=== PATIENT | male | born 1960 | race Caucasian/White ===

== ENCOUNTER 2017-03-17 08:25 | Day surgery (SDC) | payer BC ==
[2017-03-17] MEDS ORDERED: LIDOCAINE 2% MDV (20MG/ML) 20ML VIAL IV ONE (13:42)
[2017-03-17] MEDS ORDERED: MIDAZOLAM HCL 2MG/2ML VIAL IV ONE (13:42)
[2017-03-17] MEDS ORDERED: PROPOFOL 10 MG/ML VIAL IV ONE (13:42)
--- NOTE | 2017-03-19 13:42 | Operative Note ---
DATE OF SURGERY: 03/17/2017 OPERATION: COLONOSCOPY to the cecum with cold biopsy forceps polypectomy, cold snare polypectomy, and electrocautery snare polypectomy. INDICATION: Colorectal cancer screening. ANESTHESIA: Intravenous sedation was administered by the department of anesthesiology and included Diprivan titrated to effect. PROCEDURE: Following informed consent from this alert individual including a discussion of the risks and benefits of the procedure and an opportunity for the patient to ask questions, the patient was in the left lateral decubitus position. A digital rectal examination was performed. No abnormalities were detected. Following this, the Olympus [id number] video colonoscope was inserted into the rectum without resistance. The rectal mucosa had a normal appearance with normal folds and distensibility. The colonoscope was advanced up through the colon to the level of the cecum without much difficulty. The colon preparation was fair to good with the washing and suctioning. There were a few diverticula seen in the sigmoid colon. The cecum was well defined by noting the appendiceal orifice and ileocecal valve. Washing and suctioning was employed vigorously throughout the examination for fairly good clearance. Within the cecum, there were 4 diminutive 3-4 mm polyps noted each removed with application of biopsy forceps. There were 4 additional polyps noted in the ascending colon likewise removed with cold biopsy forceps also measuring 3-4 mm in size. There were 2 polyps noted in the descending colon. One was pedunculated and approximately 8 mm across the head. This polyp was removed with electrocautery snare with a white eschar noted. There was a small 5 mm polyp in the descending removed with cold snare polypectomy. There 2 additional 5 mm polyps in the sigmoid colon removed with cold snare polypectomy. Retroflexion was accomplished in the cecum and in the rectum. The rectal examination revealed small internal hemorrhoids. The endoscope was straightened and withdrawn. The patient tolerated the procedure well and was returned to the recovery area in stable condition. IMPRESSION: 1. A total of 12 polyps noted, most of them diminutive in size measuring between 3-4 mm removed from the cecum and ascending colon. The larger polyps were in the descending colon and sigmoid colon measuring 5 mm in size and one that was 8 mm in size in the descending colon which was also pedunculated. The latter was removed with electrocautery snare. The smaller ones were removed with cold snare polypectomy. 2. Mild diverticulosis. 3. Small internal hemorrhoids. RECOMMENDATIONS: The patient was advised he should receive a copy of his pathology report at home in the next 2-3 weeks. If not, he was asked to call my office to review the results of testing today. Further recommendations forthcoming pending those results. Followup will also be with [facility]. As always, thank you for allowing me to participate in the care of your patient. CC: JOHN PAUL Zambrano
== END 2017-03-17 10:40 | disposition home or self-care (01) ==
LOC: HOP 08:25
PROVIDERS: ATTEND Internal Medicine Gastroenterology
DX: Z12.11 Encounter for screening for malignant neoplasm of colon (principal); D12.4 Benign neoplasm of descending colon; D12.0 Benign neoplasm of cecum; D12.2 Benign neoplasm of ascending colon; K63.5 Polyp of colon; E11.9 Type 2 diabetes mellitus without complications; Z79.84 Long term (current) use of oral hypoglycemic drugs; J44.9 Chronic obstructive pulmonary disease, unspecified

== ENCOUNTER 2019-10-25 07:54 | Day surgery (SDC) | payer OTHER ==
[~2019-10-25 07:54] MED LIST: ACETAMINOPHEN 1,000 MG/100 ML BTL IVPB ONE
[2019-10-25] MEDS ORDERED: LIDOCAINE 2% MDV (20MG/ML) 20ML VIAL IV ONE (07:55)
[2019-10-25] MEDS ORDERED: FENTANYL PF 100MCG/2ML VIAL IV ONE (07:55)
[2019-10-25] MEDS ORDERED: PROPOFOL 10 MG/ML VIAL IV ONE (07:55)
[2019-10-25] MEDS ORDERED: MIDAZOLAM HCL 2MG/2ML VIAL IV ONE (07:55)
[2019-10-25] MEDS ORDERED: RINGERS SOLUTION,LACTATED 1,000 ML IV ONE (08:30)
[2019-10-25] MEDS ORDERED: CLINDAMYCIN 600MG/50ML PREMIX 600 MG/50 ML BAG IVPB ONE (09:40)
[2019-10-25] MEDS ORDERED: BUPIVACAINE 0.25% W/EPI MPF 30ML VIAL SQ ONE (09:45)
--- NOTE | 2019-10-26 06:01 | Operative Note ---
DATE OF SURGERY: 10/25/2019 SURGEON: Pacheco Tucker DO PREOPERATIVE DIAGNOSIS: Back mass. POSTOPERATIVE DIAGNOSIS: Back mass. OPERATION: Excision of back mass measuring 8 cm down to the fascia. PROCEDURE: The patient is a 59-year-old male who was brought to the operating room and placed in a supine position. He was rotated into left lateral position and his back was prepped and draped in the usual fashion. Propofol anesthesia was titrated to effect. At this time, the area around the mass was anesthetized with a total of 10 mL of 0.25% Sensorcaine with epinephrine. A 5 cm incision was made. This was carried down through the subcutaneous tissues to the capsule of a large lipoma. This was dissected free from the surrounding tissue with blunt dissection. This went down to the fascia overlying his back musculature. This was then fully excised measuring 8 x 4 cm. The wound was then irritated and closed with 3-0 and 4-0 Vicryl. Steri-Strips were applied. He was taken to the recovery room in stable condition. FINDINGS AT THE TIME OF SURGERY: Lipoma excised as above. [facility]
== END 2019-10-25 10:39 | disposition home or self-care (01) ==
LOC: SUR 07:54
PROVIDERS: ATTEND Surgery
DX: D17.1 Benign lipomatous neoplasm of skin and subcutaneous tissue of trunk (principal); E11.9 Type 2 diabetes mellitus without complications; I10 Essential (primary) hypertension; E78.00 Pure hypercholesterolemia, unspecified; J44.9 Chronic obstructive pulmonary disease, unspecified; J45.909 Unspecified asthma, uncomplicated; G47.33 Obstructive sleep apnea (adult) (pediatric); F17.210 Nicotine dependence, cigarettes, uncomplicated
CPT/HCPCS: 36416; 82948; J7120